=== PATIENT | female | born 1995 | race Caucasian/White ===

== ENCOUNTER 2020-05-28 09:52 | Emergency (ER) | payer OTHER, MEDICAID ==
[~2020-05-28] VITALS: Ht 157.5 cm; Wt 54.0 kg
[2020-05-28] MEDS ORDERED: BIRTH CONTROL (10:12)
[2020-05-28] MEDS ORDERED: MEDROLDOSEPACK PO (12:05)
[2020-05-28] MEDS ORDERED: NAPROSYN500 MG PO (12:05)
[2020-05-28] MEDS ORDERED: NORCO 5-325 TA1 EAC2 PO (12:11)
[2020-05-28 12:23] VITALS: BP 120/70
== END 2020-05-28 12:24 | disposition home or self-care (01) ==
LOC: M.ERS 09:52
DX: M54.42 Lumbago with sciatica, left side (principal); M54.41 Lumbago with sciatica, right side